=== PATIENT | male | born 1990 | race Caucasian/White ===

== ENCOUNTER → 2017-10-13 | Outpatient (CLI) | payer BC, OTHER ==
--- NOTE | 2017-10-13 12:48 | XR ---
EXAMINATION TYPE: XR chest 2V DATE OF EXAM: 10/13/2017 COMPARISON: NONE HISTORY: Asthma TECHNIQUE: Frontal and lateral views of the chest are obtained. FINDINGS: There is no focal air space opacity, pleural effusion, or pneumothorax seen. The cardiac silhouette size is within normal limits. The osseous structures are intact. IMPRESSION: No acute cardiopulmonary process.
== END | disposition home or self-care (01) ==
LOC: RADXRMAIN 12:05
PROVIDERS: ATTEND Family Medicine
DX: J45.909 Unspecified asthma, uncomplicated (principal)
CPT/HCPCS: 71046

== ENCOUNTER → 2017-10-21 | Outpatient (CLI) | payer BC ==
--- NOTE | 2017-10-22 11:15 | ECHOF ---
Referral Reason:CHEST PAIN R07.9 MEASUREMENTS -------- HEIGHT: 182.9 cm WEIGHT: 99.8 kg BP: 132/79 RVIDd: 3.3 cm (< 3.3) IVSd: 1.0 cm (0.6 - 1.1) LVIDd: 4.7 cm (3.9 - 5.3) LVPWd: 1.3 cm (0.6 - 1.1) IVSs: 1.4 cm LVIDs: 3.4 cm LVPWs: 1.7 cm LAESV Index (A-L): 12.22 ml/m Ao Diam: 3.0 cm (2.0 - 3.7) AV Cusp: 2.4 cm (1.5 - 2.6) LA Diam: 3.8 cm (2.7 - 3.8) MV EXCURSION: 19.848 mm (> 18.000) MV EF SLOPE: 124 mm/s (70 - 150) EPSS: 0.6 cm MV E Manjinder: 0.80 m/s MV DecT: 314 ms MV A Manjinder: 0.42 m/s MV E/A Ratio: 1.90 RAP: 5.00 mmHg RVSP: 22.74 mmHg FINDINGS -------- Sinus rhythm. This was a technically good study. The left ventricular size is normal. Left ventricular wall thickness is normal. Overall left vent ricular systolic function is normal with, an EF between 55 - 60 %. The right ventricle is mildly enlarged. Normal LA size by volume 22+/-6 ml/m2. RA appears enlarged. The aortic valve is trileaflet, and appears structurally normal. No aortic stenosis or regurgitation. The mitral valve is normal. There is trace mitral regurgitation. Mild tricuspid regurgitation present. Right ventricular systolic pressure is normal at < 35 mmHg. There is no evidence of pulmonary hypertension. Trace/mild (physiologic) pulmonic regurgitation. The aortic root size is normal. Normal inferior vena cava with normal inspiratory collapse consistent with estimated right atrial pre ssure of 5 mmHg. The pericardium is normal. There is no pericardial effusion. CONCLUSIONS -------- 1. Sinus rhythm. 2. This was a technically good study. 3. The left ventricular size is normal. 4. Left ventricular wall thickness is normal. 5. Overall left ventricular systolic function is normal with, an EF between 55 - 60 %. 6. The right ventricle is mildly enlarged. 7. Normal LA size by volume 22+/-6 ml/m2. 8. RA appears enlarged. 9. The aortic valve is trileaflet, and appears structurally normal. No aortic stenosis or regurgitati on. 10. There is trace mitral regurgitation. 11. Mild tricuspid regurgitation present. 12. Right ventricular systolic pressure is normal at < 35 mmHg. 13. There is no evidence of pulmonary hypertension. 14. Trace/mild (physiologic) pulmonic regurgitation. 15. The aortic root size is normal. 16. There is no pericardial effusion. MUSIC MANAGER: Aurelio Hernandez RDCS
== END | disposition home or self-care (01) ==
LOC: RADECHMAIN 15:52
PROVIDERS: ATTEND Family Medicine
DX: I08.1 Rheumatic disorders of both mitral and tricuspid valves (principal)
CPT/HCPCS: 93306

== ENCOUNTER 2019-11-18 14:30 | Emergency (ER) | payer BC, OTHER ==
[2019-11-18 14:35] VITALS: TEMP 97.8
[2019-11-18] MEDS ORDERED: SODIUM CHLORIDE 0.9% 1,000 ML IV STA (14:47)
--- NOTE | 2019-11-18 14:52 | ED ---
General Adult HPI - General Chief complaint: Weakness Stated complaint: weakness,dehydration Time Seen by Provider: 11/18/19 14:36 Source: patient Mode of arrival: ambulatory Limitations: no limitations - History of Present Illness Initial comments: Patient is a 29-year-old male presenting to emergency Department with complaints of lightheadedness and weakness that has been going on for 2 weeks now. Patient states this started after a night of drinking when he woke up and felt hung over. Patient states that feeling has continued for the past 2 weeks. Patient states he went to [facility] ER last week and had lab work and fluids and everything was normal. Patient states she did follow up with his PCP who thought that he was dehydrated. He has been increasing his water intake and is still having symptoms. Patient describes his lightheadedness that increases when he stands up. Patient states he was driving today and felt like he might pass out at the wheel. Patient denies the room spinning. He denies chest pain, shortness of breath, cough, fever, abdominal pain, nausea, vomiting. He has no urinary complaints. He denies pain anywhere. He denies being on medications. He denies any injuries or trauma. He has no other complaints at this time. Upon arrival to the ER his vital signs are stable. - Related Data Home Medications Medication Instructions Recorded Confirmed No Known Home Medications 06/13/15 06/13/15 Allergies Allergy/AdvReac Type Severity Reaction Status Date / Time No Known Allergies Allergy Verified 11/18/19 14:35 Review of Systems ROS Statement: Those systems with pertinent positive or pertinent negative responses have been documented in the HPI. ROS Other: All systems not noted in ROS Statement are negative. Past Medical History Past Medical History: No Reported History History of Any Multi-Drug Resistant Organisms: None Reported Past Surgical History: No Surgical Hx Reported Past Psychological History: ADD/ADHD Smoking Status: Former smoker Past Alcohol Use History: Rare Past Drug Use History: None Reported General Exam - General Exam Comments Initial Comments: GENERAL: Well-appearing, well-nourished and in no acute distress. HEAD: Atraumatic, normocephalic. EYES: Pupils equal round and reactive to light, extraocular movements intact, sclera anicteric, conjunctiva are normal. ENT: TMs normal, nares patent, oropharynx clear without exudates. Moist mucous membranes. NECK: Normal range of motion, supple without lymphadenopathy or JVD. LUNGS: Breath sounds clear to auscultation bilaterally and equal. No wheezes rales or rhonchi. HEART: Regular rate and rhythm without murmurs, rubs or gallops. ABDOMEN: Soft, nontender, normoactive bowel sounds. No guarding, no rebound. No masses appreciated. : Deferred EXTREMITIES: Normal range of motion, no pitting or edema. No clubbing or cyanosis. NEUROLOGICAL: Normal speech, normal gait. PSYCH: Normal mood, normal affect. SKIN: Warm, Dry, normal turgor, no rashes or lesions noted. Limitations: no limitations Course Vital Signs 11/18/19 14:31 Temperature 97.8 F Pulse Rate 69 Respiratory 16 Rate Blood Pressure 147/79 O2 Sat by Pulse 100 Oximetry EKG Findings - EKG Comments: EKG Findings:: Jugular rate 76, MS interval 162, QTC 393. Normal sinus rhythm. Normal ECG. No acute ST segment changes. Medical Decision Making - Medical Decision Making Patient is a 29-year-old male presenting with weakness and lightheadedness for 2 weeks. Vitals are stable. His exam is unremarkable. EKG shows no acute abnormalities. Lab work is unremarkable including negative troponin, urine, uri ne drug screen. Patient's vitals remained stable. I discussed these findings with the patient. He was mildly dehydrated, patient was given fluids. Patient records from [facility] were reviewed and showed no acute abnormalities. Patient will follow back up with his PCP. Recommended eating every 2-3 hours and keeping a log of his food intake. He is in agreement with this plan. Return parameters were discussed with the patient he verbalizes understanding. He is stable for discharge. Case discussed with Dr. Munson. - Lab Data Result diagrams: 11/18/19 14:50 11/18/19 14:50 Lab Results 11/18/19 11/18/19 11/18/19 Range/Units 14:50 14:50 14:50 WBC 6.7 (3.8-10.6) k/uL RBC 5.27 (4.30-5.90) m/uL Hgb 16.7 (13.0-17.5) gm/dL Hct 48.8 (39.0-53.0) % MCV 92.6 (80.0-100.0) fL MCH 31.7 (25.0-35.0) pg MCHC 34.3 (31.0-37.0) g/dL RDW 12.0 (11.5-15.5) % Plt Count 157 (150-450) k/uL Neutrophils % 64 % Lymphocytes % 27 % Monocytes % 5 % Eosinophils % 1 % Basophils % 0 % Neutrophils # 4.3 (1.3-7.7) k/uL Lymphocytes # 1.8 (1.0-4.8) k/uL Monocytes # 0.4 (0-1.0) k/uL Eosinophils # 0.1 (0-0.7) k/uL Basophils # 0.0 (0-0.2) k/uL Sodium 140 (137-145) mmol/L Potassium 4.7 (3.5-5.1) mmol/L Chloride 104 (98-107) mmol/L Carbon Dioxide 29 (22-30) mmol/L Anion Gap 7 mmol/L BUN 21 H (9-20) mg/dL Creatinine 0.95 (0.66-1.25) mg/dL Est GFR (CKD-EPI)AfAm >90 (>60 ml/min/1.73 sqM) Est GFR (CKD-EPI)NonAf >90 (>60 ml/min/1.73 sqM) Glucose 114 H (74-99) mg/dL Calcium 9.9 (8.4-10.2) mg/dL Total Bilirubin 1.0 (0.2-1.3) mg/dL AST 21 (17-59) U/L ALT 17 (4-49) U/L Alkaline Phosphatase 76 (38-126) U/L Troponin I (0.000-0.034) ng/mL Total Protein 7.6 (6.3-8.2) g/dL Albumin 4.9 (3.5-5.0) g/dL Urine Color Colorless Urine Appearance Clear (Clear) Urine pH 7.0 (5.0-8.0) Ur Specific [place] 1.005 (1.001-1.035) Urine Protein Negative (Negative) Urine Glucose (UA) Negative (Negative) Urine Ketones Negative (Negative) Urine Blood Negative (Negative) Urine Nitrite Negative (Negative) Urine Bilirubin Negative (Negative) Urine Urobilinogen <2.0 (<2.0) mg/dL Ur Leukocyte Esterase Negative (Negative) Urine Opiates Screen Not Detected (NotDetected) Ur Oxycodone Screen Not Detected (NotDetected) Urine Methadone Screen Not Detected (NotDetected) Ur Propoxyphene Screen Not Detected (NotDetected) Ur Barbiturates Screen Not Detected (NotDetected) U Tricyclic Antidepress Not Detected (NotDetected) Ur Phencyclidine Scrn Not Detected (NotDetected) Ur Amphetamines Screen Not Detected (NotDetected) U Methamphetamines Scrn Not Detected (NotDetected) U Benzodiazepines Scrn Not Detected (NotDetected) Urine Cocaine Screen Not Detected (NotDetected) U Marijuana (THC) Screen Not Detected (NotDetected) Serum Alcohol <10 mg/dL 11/18/19 Range/Units 14:50 WBC (3.8-10.6) k/uL RBC (4.30-5.90) m/uL Hgb (13.0-17.5) gm/dL Hct (39.0-53.0) % MCV (80.0-100.0) fL MCH (25.0-35.0) pg MCHC (31.0-37.0) g/dL RDW (11.5-15.5) % Plt Count (150-450) k/uL Neutrophils % % Lymphocytes % % Monocytes % % Eosinophils % % Basophils % % Neutrophils # (1.3-7.7) k/uL Lymphocytes # (1.0-4.8) k/uL Monocytes # (0-1.0) k/uL Eosinophils # (0-0.7) k/uL Basophils # (0-0.2) k/uL Sodium (137-145) mmol/L Potassium (3.5-5.1) mmol/L Chloride (98-107) mmol/L Carbon Dioxide (22-30) mmol/L Anion Gap mmol/L BUN (9-20) mg/dL Creatinine (0.66-1.25) mg/dL Est GFR (CKD-EPI)AfAm (>60 ml/min/1.73 sqM) Est GFR (CKD-EPI)NonAf (>60 ml/min/1.73 sqM) Glucose (74-99) mg/dL Calcium (8.4-10.2) mg/dL Total Bilirubin (0.2-1.3) mg/dL AST (17-59) U/L ALT (4-49) U/L Alkaline Phosphatase (38-126) U/L Troponin I <0.012 (0.000-0.034) ng/mL Total Protein (6.3-8.2) g/dL Albumin (3.5-5.0) g/dL Urine Color Urine Appearance (Clear) Urine pH (5.0-8.0) Ur Specific [place] (1.001-1.035) Urine Protein (Negative) Urine Glucose (UA) (Negative) Urine Ketones (Negative) Urine Blood (Negative) Urine Nitrite (Negative) Urine Bilirubin (Negative) Urine Urobilinogen (<2.0) mg/dL Ur Leukocyte Esterase (Negative) Urine Opiates Screen (NotDetected) Ur Oxycodone Screen (NotDetected) Urine Methadone Screen (NotDetected) Ur Propoxyphene Screen (NotDetected) Ur Barbiturates Screen (NotDetected) U Tricyclic Antidepress (NotDetected) Ur Phencyclidine Scrn (NotDetected) Ur Amphetamines Screen (NotDetected) U Methamphetamines Scrn (NotDetected) U Benzodiazepines Scrn (NotDetected) Urine Cocaine Screen (NotDetected) U Marijuana (THC) Screen (NotDetected) Serum Alcohol mg/dL Disposition Clinical Impression: Dehydration, Light headedness Disposition: HOME SELF-CARE Condition: Stable Instructions (If sedation given, give patient instructions): Dehydration (ED) Additional Instructions: Please return to the Emergency Department if symptoms worsen or any other conc erns. Follow-up with PCP. Is patient prescribed a controlled substance at d/c from ED?: No Referrals: Leonides Luis MD [Primary Care Provider] - 1-2 days
[2019-11-18 15:07] LABS: Appearance,Urine Clear (Clear); Bilirubin,Urine Negative (Negative); Blood,Urine Negative (Negative); Color,Urine Colorless; Glucose,Urine (UA) Negative (Negative); Ketones,Urine Negative (Negative); Leukocyte Esterase,Urine Negative (Negative); Nitrite,Urine Negative (Negative); Protein,Urine Negative (Negative); Specific Gravity,Urine 1.005 (1.001-1.035); Urobilinogen,Urine <2.0 mg/dL (<2.0)
[2019-11-18 15:12] LABS: Basophils % (A) 0 %; Eosinophils # (A) 0.1 k/uL (0-0.7); Eosinophils % (A) 1 %; HCT 48.8 % (39.0-53.0); HGB 16.7 gm/dL (13.0-17.5); Lymphocytes # (A) 1.8 k/uL (1.0-4.8); Lymphocytes % (A) 27 %; MCH 31.7 pg (25.0-35.0); MCHC 34.3 g/dL (31.0-37.0); MCV 92.6 fL (80.0-100.0); Mean Platelet Volume 8.3; Monocytes # (A) 0.4 k/uL (0-1.0); Monocytes % (A) 5 %; Neutrophils # (A) 4.3 k/uL (1.3-7.7); Neutrophils % (A) 64 %; Platelet Count 157 k/uL (150-450); RBC 5.27 m/uL (4.30-5.90); WBC 6.7 k/uL (3.8-10.6)
[2019-11-18 15:16] LABS: Phencyclidine Screen,Urine Not Detected (NotDetected); Urn Cannabinoid Scrn Not Detected (NotDetected)
[2019-11-18 15:17] LABS: ALT 17 U/L (4-49); AST 21 U/L (17-59); African American GFR (CKD) >90 (>60 ml/min/1.73 sqM); Albumin 4.9 g/dL (3.5-5.0); Alcohol <10 mg/dL; Alkaline Phosphatase 76 U/L (38-126); Amphetamine Screen,Urine Not Detected (NotDetected); Anion Gap 7 mmol/L; Barbiturate Screen,Urine Not Detected (NotDetected); Benzodiazepines Screen,Urine Not Detected (NotDetected); Blood Urea Nitrogen 21 mg/dL (9-20); Calcium 9.9 mg/dL (8.4-10.2); Carbon Dioxide 29 mmol/L (22-30); Chloride 104 mmol/L (98-107); Cocaine Screen,Urine Not Detected (NotDetected); Glucose 114 mg/dL (74-99); Methadone Screen, Urine Not Detected (NotDetected); Non-African American GFR(CKD) >90 (>60 ml/min/1.73 sqM); Opiate Screen,Urine Not Detected (NotDetected); Oxycodone Screen, Urine Not Detected (NotDetected); Potassium 4.7 mmol/L (3.5-5.1); Sodium 140 mmol/L (137-145); Total Protein 7.6 g/dL (6.3-8.2); Tricyclic Antidepressant,Urine Not Detected (NotDetected)
[2019-11-18 15:57] VITALS: BP 141/76; PULSE 88; RESP 18
== END 2019-11-18 15:53 | disposition home or self-care (01) ==
LOC: EC 14:30
DX: E86.0 Dehydration (principal); Z87.891 Personal history of nicotine dependence
CPT/HCPCS: 36415; 80053; 80306; 80320; 81003; 84484; 85025; 93005; 96360; 99285

== ENCOUNTER → 2019-11-23 | Outpatient (CLI) | payer BC ==
--- NOTE | 2019-11-23 14:45 | XR ---
EXAMINATION TYPE: XR chest 2V DATE OF EXAM: 11/23/2019 COMPARISON: 12/03/2017 TECHNIQUE: PA and lateral views submitted. HISTORY: Shortness of breath FINDINGS: The lungs are clear and there is no pneumothorax, pleural effusion, or focal pneumonia. No overt fa ilure. Biapical pleural thickening. No pleural effusion. IMPRESSION: 1. No acute process.
== END | disposition home or self-care (01) ==
LOC: RADXRMAIN 14:25
PROVIDERS: ATTEND Family Medicine
DX: R06.09 Other forms of dyspnea (principal)
CPT/HCPCS: 71046

== ENCOUNTER → 2019-11-25 | Outpatient (CLI) | payer BC ==
--- NOTE | 2019-11-25 17:23 | ECHOF ---
Referral Reason:I10 hypertension MEASUREMENTS -------- HEIGHT: 182.9 cm WEIGHT: 95.3 kg BP: 104/61 RVIDd: 3.5 cm (< 3.3) IVSd: 1.0 cm (0.6 - 1.1) LVIDd: 5.0 cm (3.9 - 5.3) LVPWd: 1.0 cm (0.6 - 1.1) IVSs: 1.5 cm LVIDs: 3.4 cm LVPWs: 1.6 cm LA Diam: 3.7 cm (2.7 - 3.8) LAESV Index (A-L): 21.76 ml/m Ao Diam: 3.2 cm (2.0 - 3.7) AV Cusp: 2.2 cm (1.5 - 2.6) MV EXCURSION: 18.829 mm (> 18.000) MV EF SLOPE: 123 mm/s (70 - 150) EPSS: 0.4 cm MV E Manjinder: 0.98 m/s MV DecT: 186 ms MV A Manjinder: 0.62 m/s MV E/A Ratio: 1.60 RAP: 5.00 mmHg RVSP: 24.40 mmHg TAPSE: 19.91 mm FINDINGS -------- Sinus rhythm. This was a technically good study. The left ventricular size is normal. Left ventricular wall thickness is normal. Overall left vent ricular systolic function is normal with, an EF between 60 - 65 %. The right ventricle is mildly enlarged. Normal LA size by volume 22+/-6 ml/m2. The right atrium is normal in size. Aneurysmal Interatrial septum. The aortic valve is trileaflet and appears structurally normal. The mitral valve is normal. Mild tricuspid regurgitation present. Right ventricular systolic pressure is normal at < 35 mmHg. Trace/mild (physiologic) pulmonic regurgitation. The aortic root size is normal. Normal inferior vena cava with normal inspiratory collapse consistent with estimated right atrial pre ssure of 5 mmHg. The inferior vena cava is mildly dilated. There is no pericardial effusion. CONCLUSIONS -------- 1. Sinus rhythm. 2. This was a technically good study. 3. The left ventricular size is normal. 4. Left ventricular wall thickness is normal. 5. Overall left ventricular systolic function is normal with, an EF between 60 - 65 %. 6. The right ventricle is mildly enlarged. 7. Normal LA size by volume 22+/-6 ml/m2. 8. The right atrium is normal in size. 9. Aneurysmal Interatrial septum. 10. The aortic valve is trileaflet and appears structurally normal. 11. The mitral valve is normal. 12. Mild tricuspid regurgitation present. 13. Right ventricular systolic pressure is normal at < 35 mmHg. 14. Trace/mild (physiologic) pulmonic regurgitation. 15. The aortic root size is normal. 16. Normal inferior vena cava with normal inspiratory collapse consistent with estimated right atrial pressure of 5 mmHg. 17. The inferior vena cava is mildly dilated. 18. There is no pericardial effusion. SAL[employer]ERSON [employer]: Rhianna Diehl RDCS
== END | disposition home or self-care (01) ==
LOC: RADECHMAIN 12:39
PROVIDERS: ATTEND Family Medicine
DX: I07.1 Rheumatic tricuspid insufficiency (principal); I37.1 Nonrheumatic pulmonary valve insufficiency
CPT/HCPCS: 93306

== ENCOUNTER 2019-12-08 20:36 | Emergency (ER) | payer BC ==
[2019-12-08 20:43] VITALS: RESP 18
[2019-12-08] MEDS ORDERED: SODIUM CHLORIDE 0.9% 1,000 ML IV STA (21:10)
--- NOTE | 2019-12-08 21:17 | ED ---
General Adult HPI - General Chief complaint: Dizziness Stated complaint: Lightheaded Time Seen by Provider: 12/08/19 20:53 Source: patient Mode of arrival: ambulatory Limitations: no limitations - History of Present Illness Initial comments: 29-year-old male patient presents to the emergency department today for evaluation after having a syncopal episode at home. Patient states over the last month he has had 3 syncopal events. States that he has been evaluated by cardiology. He underwent an echocardiogram and was diagnosed with an atrial septal aneurysm. He is currently wearing a Holter monitor, has not had any calls from the [employer]. Patient states prior to the syncopal event he'll become very tired and felt cold. Patient has fallen from standing but denies any injuries. Mother is present she did witness the event states he was unconscious for only a few seconds. She denies any full body shaking or tonic-clonic movements during these episodes. Denies loss of bowel or bladder control. States that the patient feels very fatigued afterwards. He does admit to having some shortness of breath with this. Denies chest pain, nausea, or vomiting. Patient was initially told he was dehydrated so has been increasing his fluid intake including water. Prior to one month ago patient denies any history of similar symptoms. States he does have a history of asthma and takes montelukast, multivitamin, and fish oil tablets no other medications. Patient denies any recent rash, fever, chills, cough, abdominal pain, nausea, vomiting, diarrhea, constipation, back pain, numbness, tingling, hematuria, dysuria, urinary urgency, urinary frequency, headache, visual changes, or any other complaints. - Related Data Home Medications Medication Instructions Recorded Confirmed No Known Home Medications 06/13/15 06/13/15 Allergies Allergy/AdvReac Type Severity Reaction Status Date / Time No Known Allergies Allergy Verified 11/18/19 14:35 Review of Systems ROS Statement: Those systems with pertinent positive or pertinent negative responses have been documented in the HPI. ROS Other: All systems not noted in ROS Statement are negative. Past Medical History Past Medical History: No Reported History History of Any Multi-Drug Resistant Organisms: None Reported Past Surgical History: No Surgical Hx Reported Past Psychological History: ADD/ADHD Smoking Status: Former smoker Past Alcohol Use History: Rare Past Drug Use History: None Reported General Exam Limitations: no limitations General appearance: alert, in no apparent distress, other (This is a well- developed, well-nourished adult male patient in no acute distress. Vital signs upon presentation are temperature 97.6F, pulse 86, respirations 18, blood pressure 129/84, pulse ox 100% on room air.) Eye exam: Present: normal appearance, PERRL, EOMI. Absent: scleral icterus, conjunctival injection, periorbital swelling ENT exam: Present: normal exam, normal oropharynx, mucous membranes moist Respiratory exam: Present: normal lung sounds bilaterally. Absent: respiratory distress, wheezes, rales, rhonchi, stridor Cardiovascular Exam: Present: regular rate, normal rhythm, normal heart sounds. Absent: systolic murmur, diastolic murmur, rubs, gallop, clicks GI/Abdominal exam: Present: soft, normal bowel sounds. Absent: distended, tenderness, guarding, rebound, rigid Neurological exam: Present: alert, oriented X3, CN II-XII intact Psychiatric exam: Present: normal affect, normal mood Skin exam: Present: warm, dry, intact, normal color. Absent: rash Course Vital Signs 12/08/19 12/08/19 20:37 22:48 Temperature 97.6 F 98.0 F Pulse Rate 86 67 Respiratory 18 18 Rate Blood Pressure 129/84 122/82 O2 Sat by Pulse 100 100 Oximetry EKG Findings - EKG Comments: EKG Findings:: EKG obtained at 2046 shows normal sinus rhythm with a ventricular rate of 78, WI interval 164, QRS duration 102, QT 368, QTC 419. No evidence of ST elevation or depression. Medical Decision Making - Medical Decision Making 29-year-old male patient presents to the emergency department today for evaluation of syncope and dizziness. Physical examination is unremarkable. He is neurologically intact with no focal deficits. Labs reviewed and are unremarkable. EKG was normal sinus rhythm. Patient is currently being tested after having 2 similar episodes over the past month. He is currently wearing a Holter monitor. Holter monitor company did send images of his readouts which did appear to be normal sinus with some evidence of artifact. No evidence for ectopy. He'll be discharged follow up with his tire rebuilder as soon as possible for further evaluation. Return parameters were discussed in detail. He verbalizes understanding and agrees with this plan. - Lab Data Result diagrams: 12/08/19 20:55 12/08/19 20:55 Lab Results 12/08/19 12/08/19 12/08/19 Range/Units 20:55 20:55 20:55 WBC 10.3 (3.8-10.6) k/uL RBC 5.30 (4.30-5.90) m/uL Hgb 16.6 (13.0-17.5) gm/dL Hct 48.4 (39.0-53.0) % MCV 91.4 (80.0-100.0) fL MCH 31.3 (25.0-35.0) pg MCHC 34.3 (31.0-37.0) g/dL RDW 11.7 (11.5-15.5) % Plt Count 140 L (150-450) k/uL Neutrophils % 56 % Lymphocytes % 36 % Monocytes % 5 % Eosinophils % 1 % Basophils % 0 % Neutrophils # 5.7 (1.3-7.7) k/uL Lymphocytes # 3.7 (1.0-4.8) k/uL Monocytes # 0.5 (0-1.0) k/uL Eosinophils # 0.1 (0-0.7) k/uL Basophils # 0.0 (0-0.2) k/uL PT 9.9 (9.0-12.0) sec INR 0.9 (<1.2) APTT 25.2 (22.0-30.0) sec Sodium (137-145) mmol/L Potassium (3.5-5.1) mmol/L Chloride (98-107) mmol/L Carbon Dioxide (22-30) mmol/L Anion Gap mmol/L BUN (9-20) mg/dL Creatinine (0.66-1.25) mg/dL Est GFR (CKD-EPI)AfAm (>60 ml/min/1.73 sqM) Est GFR (CKD-EPI)NonAf (>60 ml/min/1.73 sqM) Glucose (74-99) mg/dL Calcium (8.4-10.2) mg/dL Total Bilirubin (0.2-1.3) mg/dL AST (17-59) U/L ALT (4-49) U/L Alkaline Phosphatase (38-126) U/L Troponin I (0.000-0.034) ng/mL Total Protein (6.3-8.2) g/dL Albumin (3.5-5.0) g/dL Urine Color Light Yellow Urine Appearance Clear (Clear) Urine pH 6.0 (5.0-8.0) Ur Specific [place] 1.025 (1.001-1.035) Urine Protein Negative (Negative) Urine Glucose (UA) Negative (Negative) Urine Ketones Negative (Negative) Urine Blood Negative (Negative) Urine Nitrite Negative (Negative) Urine Bilirubin Negative (Negative) Urine Urobilinogen <2.0 (<2.0) mg/dL Ur Leukocyte Esterase Negative (Negative) 12/08/19 12/08/19 Range/Units 20:55 20:55 WBC (3.8-10.6) k/uL RBC (4.30-5.90) m/uL Hgb (13.0-17.5) gm/dL Hct (39.0-53.0) % MCV (80.0-100.0) fL MCH (25.0-35.0) pg MCHC (31.0-37.0) g/dL RDW (11.5-15.5) % Plt Count (150-450) k/uL Neutrophils % % Lymphocytes % % Monocytes % % Eosinophils % % Basophils % % Neutrophils # (1.3-7.7) k/uL Lymphocytes # (1.0-4.8) k/uL Monocytes # (0-1.0) k/uL Eosinophils # (0-0.7) k/uL Basophils # (0-0.2) k/uL PT (9.0-12.0) sec INR (<1.2) APTT (22.0-30.0) sec Sodium 137 (137-145) mmol/L Potassium 4.1 (3.5-5.1) mmol/L Chloride 103 (98-107) mmol/L Carbon Dioxide 22 (22-30) mmol/L Anion Gap 12 mmol/L BUN 30 H (9-20) mg/dL Creatinine 1.02 (0.66-1.25) mg/dL Est GFR (CKD-EPI)AfAm >90 (>60 ml/min/1.73 sqM) Est GFR (CKD-EPI)NonAf >90 (>60 ml/min/1.73 sqM) Glucose 96 (74-99) mg/dL Calcium 9.6 (8.4-10.2) mg/dL Total Bilirubin 1.0 (0.2-1.3) mg/dL AST 22 (17-59) U/L ALT 19 (4-49) U/L Alkaline Phosphatase 85 (38-126) U/L Troponin I <0.012 (0.000-0.034) ng/mL Total Protein 7.8 (6.3-8.2) g/dL Albumin 5.0 (3.5-5.0) g/dL Urine Color Urine Appearance (Clear) Urine pH (5.0-8.0) Ur Specific [place] (1.001-1.035) Urine Protein (Negative) Urine Glucose (UA) (Negative) Urine Ketones (Negative) Urine Blood (Negative) Urine Nitrite (Negative) Urine Bilirubin (Negative) Urine Urobilinogen (<2.0) mg/dL Ur Leukocyte Esterase (Negative) - Radiology Data Radiology results: report reviewed, image reviewed 2 views of the chest are obtained. Report was reviewed in its entirety. Impression by Dr. Lowry shows normal chest. Normal heart. No change. Disposition Clinical Impression: Syncope Disposition: HOME SELF-CARE Condition: Good Instructions (If sedation given, give patient instructions): Syncope (ED) Additional Instructions: Increase fluids. Rest. Follow-up with your primary care physician for recheck in 1-2 days. Follow-up with her tire rebuilder as soon as possible. Return to the emergency department immediately for any new, worsening, or concerning symptoms. Is patient prescribed a controlled substance at d/c from ED?: No Referrals: Leonides Luis MD [Primary Care Provider] - 1-2 days Time of Disposition: 22:50
[2019-12-08 21:19] LABS: Basophils % (A) 0 %; Eosinophils # (A) 0.1 k/uL (0-0.7); Eosinophils % (A) 1 %; HCT 48.4 % (39.0-53.0); HGB 16.6 gm/dL (13.0-17.5); Lymphocytes # (A) 3.7 k/uL (1.0-4.8); Lymphocytes % (A) 36 %; MCH 31.3 pg (25.0-35.0); MCHC 34.3 g/dL (31.0-37.0); MCV 91.4 fL (80.0-100.0); Mean Platelet Volume 8.4; Monocytes # (A) 0.5 k/uL (0-1.0); Monocytes % (A) 5 %; Neutrophils # (A) 5.7 k/uL (1.3-7.7); Neutrophils % (A) 56 %; Platelet Count 140 k/uL (150-450); RDW 11.7 % (11.5-15.5); WBC 10.3 k/uL (3.8-10.6)
[2019-12-08 21:20] LABS: Appearance,Urine Clear (Clear); Bilirubin,Urine Negative (Negative); Blood,Urine Negative (Negative); Color,Urine Light Yellow; Glucose,Urine (UA) Negative (Negative); Ketones,Urine Negative (Negative); Leukocyte Esterase,Urine Negative (Negative); Nitrite,Urine Negative (Negative); Protein,Urine Negative (Negative); Specific Gravity,Urine 1.025 (1.001-1.035); Urobilinogen,Urine <2.0 mg/dL (<2.0)
--- NOTE | 2019-12-08 21:25 | XR ---
EXAMINATION TYPE: XR chest 2V DATE OF EXAM: 12/08/2019 History: Short of breath Technique: 2 views Comparison 11/23/2019 TECHNIQUE: FINDINGS: Heart and mediastinum are normal. Lungs are clear. Diaphragm is normal. Bony thorax appears normal. IMPRESSION: Normal chest. Normal heart. No change.
[2019-12-08 21:29] LABS: ALT 19 U/L (4-49); AST 22 U/L (17-59); African American GFR (CKD) >90 (>60 ml/min/1.73 sqM); Alkaline Phosphatase 85 U/L (38-126); Anion Gap 12 mmol/L; Blood Urea Nitrogen 30 mg/dL (9-20); Calcium 9.6 mg/dL (8.4-10.2); Carbon Dioxide 22 mmol/L (22-30); Chloride 103 mmol/L (98-107); Glucose 96 mg/dL (74-99); Non-African American GFR(CKD) >90 (>60 ml/min/1.73 sqM); Potassium 4.1 mmol/L (3.5-5.1); Sodium 137 mmol/L (137-145); Total Protein 7.8 g/dL (6.3-8.2)
[2019-12-08 21:32] LABS: INR 0.9 (<1.2); Partial Thromboplastin Time 25.2 sec (22.0-30.0); Prothrombin Time 9.9 sec (9.0-12.0)
[2019-12-08 22:49] VITALS: BP 122/82; PULSE 67; TEMP 98
== END 2019-12-08 22:55 | disposition home or self-care (01) ==
LOC: EC 20:36
DX: R55 Syncope and collapse (principal); R42 Dizziness and giddiness; R06.02 Shortness of breath; Z87.891 Personal history of nicotine dependence
CPT/HCPCS: 36415; 71046; 80053; 81003; 84484; 85025; 85610; 85730; 93005; 96360; 99284

== ENCOUNTER 2019-12-12 15:10 | Emergency (ER) | payer BC ==
[2019-12-12 15:15] LABS: Glucose,Whole Blood 102 mg/dL (75-99)
[2019-12-12 15:17] VITALS: TEMP 98.7
[2019-12-12] MEDS ORDERED: SODIUM CHLORIDE 0.9% 1,000 ML IV STA ×2 (15:31)
[2019-12-12 15:48] LABS: Basophils % (A) 1 %; Eosinophils # (A) 0.1 k/uL (0-0.7); Eosinophils % (A) 2 %; HCT 48.7 % (39.0-53.0); HGB 16.1 gm/dL (13.0-17.5); Lymphocytes # (A) 2.4 k/uL (1.0-4.8); Lymphocytes % (A) 36 %; MCH 30.8 pg (25.0-35.0); MCHC 33.1 g/dL (31.0-37.0); MCV 92.9 fL (80.0-100.0); Mean Platelet Volume 8.4; Monocytes # (A) 0.4 k/uL (0-1.0); Monocytes % (A) 6 %; Neutrophils # (A) 3.5 k/uL (1.3-7.7); Neutrophils % (A) 53 %; Platelet Count 125 k/uL (150-450); RBC 5.25 m/uL (4.30-5.90); RDW 11.6 % (11.5-15.5); WBC 6.6 k/uL (3.8-10.6)
--- NOTE | 2019-12-12 15:48 | ED ---
General Adult HPI - General Chief complaint: Dizziness Stated complaint: confusion/dizziness Time Seen by Provider: 12/12/19 15:18 Source: patient, RN notes reviewed, old records reviewed Mode of arrival: ambulatory Limitations: no limitations - History of Present Illness Initial comments: Patient is a 29-year-old male who presents emergency room today with complaints of shortness of breath, he can't take a full deep breath and shakiness as well and lightheadedness. He reports his been to the emergency department multiple times and was diagnosed dehydration. Patient states that he's been drinking plenty of water. He denies any drug or alcohol use. Patient reports she's had full evaluation including an echocardiogram and follow-up with his primary care doctor. He states that he's been feeling this way for the past month. He denies any anxiety. He denies any pain at this time. - Related Data Home Medications Medication Instructions Recorded Confirmed No Known Home Medications 06/13/15 06/13/15 Allergies Allergy/AdvReac Type Severity Reaction Status Date / Time No Known Allergies Allergy Verified 12/12/19 15:17 Review of Systems ROS Statement: Those systems with pertinent positive or pertinent negative responses have been documented in the HPI. ROS Other: All systems not noted in ROS Statement are negative. Past Medical History Past Medical History: No Reported History History of Any Multi-Drug Resistant Organisms: None Reported Past Surgical History: No Surgical Hx Reported Past Psychological History: ADD/ADHD Smoking Status: Former smoker Past Alcohol Use History: Rare Past Drug Use History: None Reported General Exam - General Exam Comments Initial Comments: 29-year-old male. Alert and oriented 3. No distress. Patient appears somewhat shaky. Limitations: no limitations General appearance: alert, in no apparent distress Head exam: Present: atraumatic, normocephalic, normal inspection Eye exam: Present: normal appearance, PERRL, EOMI. Absent: scleral icterus, conjunctival injection, periorbital swelling ENT exam: Present: normal exam, mucous membranes moist Neck exam: Present: normal inspection. Absent: tenderness, meningismus, lymphadenopathy Respiratory exam: Present: normal lung sounds bilaterally. Absent: respiratory distress, wheezes, rales, rhonchi, stridor Cardiovascular Exam: Present: regular rate, normal rhythm, normal heart sounds, other (Patient has Holter monitor.). Absent: systolic murmur, diastolic murmur, rubs, gallop, clicks GI/Abdominal exam: Present: soft, normal bowel sounds. Absent: distended, tenderness, guarding, rebound, rigid Extremities exam: Present: normal inspection, full ROM, normal capillary refill. Absent: tenderness, pedal edema, joint swelling, calf tenderness Back exam: Present: normal inspection Neurological exam: Present: alert, oriented X3, CN II-XII intact Psychiatric exam: Present: normal affect, normal mood Skin exam: Present: warm, dry, intact, normal color Course Vital Signs 12/12/19 15:12 Temperature 98.7 F Pulse Rate 77 Respiratory 18 Rate Blood Pressure 128/79 O2 Sat by Pulse 98 Oximetry - Reevaluation(s) Reevaluation #1: 12/12/19 16:48 Patient is reevaluated resting comfortably in bed. He states he is feeling much better at this time. Discussed lab results Patient feels well and will be discharged home. EKG Findings - EKG Comments: EKG Findings:: EKG performed at 1553 shows sinus rhythm with marked sinus ar rhythmia otherwise normal EKG. Ventricular rate 74 bpm period. Intervals 156 ms. QRS duration is 96 ms. QT QTc is 356/395 ms. Medical Decision Making - Medical Decision Making Patient is a 79-year-old male presents raise from today was shakiness, feeling lightheaded. On initial presentation appeared somewhat anxious. He denied any acute anxiety history. Patient was given full evaluation. Labs and EKG is obtained. EKG shows Sinus rhythm, no acute changes. Patient also has a Holter monitor on. The company has not called him with any abnormalities. On his last evaluation 4 days ago records were completed from the heart monitor [employer] and showed no changes. Troponin and rest his blood work was reviewed and negative. After reevaluating the Patient receiving 1 L fluids is stating he is feeling much better and continues to symptoms of feeling like he is dehydrated. Discusses no vomiting and diarrhea does not appear to be clinical case of dehydration based off the lab, however if he is feeling improved he is Stable to be discharged home. I clinically feel that this is more of anxiety induced symptoms. I discussed following up with his primary care doctor. - Lab Data Result diagrams: 12/12/19 15:36 12/12/19 15:36 Lab Results 03/22/20 03/22/20 03/22/20 Range/Units 15:14 15:36 15:36 WBC 6.6 (3.8-10.6) k/uL RBC 5.25 (4.30-5.90) m/uL Hgb 16.1 (13.0-17.5) gm/dL Hct 48.7 (39.0-53.0) % MCV 92.9 (80.0-100.0) fL MCH 30.8 (25.0-35.0) pg MCHC 33.1 (31.0-37.0) g/dL RDW 11.6 (11.5-15.5) % Plt Count 125 L (150-450) k/uL Neutrophils % 53 % Lymphocytes % 36 % Monocytes % 6 % Eosinophils % 2 % Basophils % 1 % Neutrophils # 3.5 (1.3-7.7) k/uL Lymphocytes # 2.4 (1.0-4.8) k/uL Monocytes # 0.4 (0-1.0) k/uL Eosinophils # 0.1 (0-0.7) k/uL Basophils # 0.0 (0-0.2) k/uL PT 10.3 (9.0-12.0) sec INR 1.0 (<1.2) Sodium (137-145) mmol/L Potassium (3.5-5.1) mmol/L Chloride (98-107) mmol/L Carbon Dioxide (22-30) mmol/L Anion Gap mmol/L BUN (9-20) mg/dL Creatinine (0.66-1.25) mg/dL Est GFR (CKD-EPI)AfAm (>60 ml/min/1.73 sqM) Est GFR (CKD-EPI)NonAf (>60 ml/min/1.73 sqM) Glucose (74-99) mg/dL POC Glucose (mg/dL) 102 H (75-99) mg/dL POC Glu Script Coordinator ID Sandhya Whitman Plasma Lactic Acid Les (0.7-2.0) mmol/L Calcium (8.4-10.2) mg/dL Magnesium (1.6-2.3) mg/dL Total Bilirubin (0.2-1.3) mg/dL AST (17-59) U/L ALT (4-49) U/L Alkaline Phosphatase (38-126) U/L Troponin I (0.000-0.034) ng/mL Total Protein (6.3-8.2) g/dL Albumin (3.5-5.0) g/dL TSH (0.465-4.680) mIU/L Urine Color Urine Appearance (Clear) Urine pH (5.0-8.0) Ur Specific [place] (1.001-1.035) Urine Protein (Negative) Urine Glucose (UA) (Negative) Urine Ketones (Negative) Urine Blood (Negative) Urine Nitrite (Negative) Urine Bilirubin (Negative) Urine Urobilinogen (<2.0) mg/dL Ur Leukocyte Esterase (Negative) Urine Opiates Screen (NotDetected) Ur Oxycodone Screen (NotDetected) Urine Methadone Screen (NotDetected) Ur Propoxyphene Screen (NotDetected) Ur Barbiturates Screen (NotDetected) U Tricyclic Antidepress (NotDetected) Ur Phencyclidine Scrn (NotDetected) Ur Amphetamines Screen (NotDetected) U Methamphetamines Scrn (NotDetected) U Benzodiazepines Scrn (NotDetected) Urine Cocaine Screen (NotDetected) U Marijuana (THC) Screen (NotDetected) Serum Alcohol mg/dL 12/12/19 12/12/19 12/12/19 Range/Units 15:36 15:36 15:47 WBC (3.8-10.6) k/uL RBC (4.30-5.90) m/uL Hgb (13.0-17.5) gm/dL Hct (39.0-53.0) % MCV (80.0-100.0) fL MCH (25.0-35.0) pg MCHC (31.0-37.0) g/dL RDW (11.5-15.5) % Plt Count (150-450) k/uL Neutrophils % % Lymphocytes % % Monocytes % % Eosinophils % % Basophils % % Neutrophils # (1.3-7.7) k/uL Lymphocytes # (1.0-4.8) k/uL Monocytes # (0-1.0) k/uL Eosinophils # (0-0.7) k/uL Basophils # (0-0.2) k/uL PT (9.0-12.0) sec INR (<1.2) Sodium 141 (137-145) mmol/L Potassium 4.3 (3.5-5.1) mmol/L Chloride 105 (98-107) mmol/L Carbon Dioxide 29 (22-30) mmol/L Anion Gap 7 mmol/L BUN 24 H (9-20) mg/dL Creatinine 1.05 (0.66-1.25) mg/dL Est GFR (CKD-EPI)AfAm >90 (>60 ml/min/1.73 sqM) Est GFR (CKD-EPI)NonAf >90 (>60 ml/min/1.73 sqM) Glucose 94 (74-99) mg/dL POC Glucose (mg/dL) (75-99) mg/dL POC Glu Script Coordinator ID Plasma Lactic Acid Les 1.6 (0.7-2.0) mmol/L Calcium 9.9 (8.4-10.2) mg/dL Magnesium 2.2 (1.6-2.3) mg/dL Total Bilirubin 1.7 H (0.2-1.3) mg/dL AST 20 (17-59) U/L ALT 19 (4-49) U/L Alkaline Phosphatase 68 (38-126) U/L Troponin I <0.012 (0.000-0.034) ng/mL Total Protein 7.4 (6.3-8.2) g/dL Albumin 4.7 (3.5-5.0) g/dL TSH 1.920 (0.465-4.680) mIU/L Urine Color Urine Appearance (Clear) Urine pH (5.0-8.0) Ur Specific [place] (1.001-1.035) Urine Protein (Negative) Urine Glucose (UA) (Negative) Urine Ketones (Negative) Urine Blood (Negative) Urine Nitrite (Negative) Urine Bilirubin (Negative) Urine Urobilinogen (<2.0) mg/dL Ur Leukocyte Esterase (Negative) Urine Opiates Screen (NotDetected) Ur Oxycodone Screen (NotDetected) Urine Methadone Screen (NotDetected) Ur Propoxyphene Screen (NotDetected) Ur Barbiturates Screen (NotDetected) U Tricyclic Antidepress (NotDetected) Ur Phencyclidine Scrn (NotDetected) Ur Amphetamines Screen (NotDetected) U Methamphetamines Scrn (NotDetected) U Benzodiazepines Scrn (NotDetected) Urine Cocaine Screen (NotDetected) U Marijuana (THC) Screen (NotDetected) Serum Alcohol mg/dL 12/12/19 12/12/19 Range/Units 15:47 15:55 WBC (3.8-10.6) k/uL RBC (4.30-5.90) m/uL Hgb (13.0-17.5) gm/dL Hct (39.0-53.0) % MCV (80.0-100.0) fL MCH (25.0-35.0) pg MCHC (31.0-37.0) g/dL RDW (11.5-15.5) % Plt Count (150-450) k/uL Neutrophils % % Lymphocytes % % Monocytes % % Eosinophils % % Basophils % % Neutrophils # (1.3-7.7) k/uL Lymphocytes # (1.0-4.8) k/uL Monocytes # (0-1.0) k/uL Eosinophils # (0-0.7) k/uL Basophils # (0-0.2) k/uL PT (9.0-12.0) sec INR (<1.2) Sodium (137-145) mmol/L Potassium (3.5-5.1) mmol/L Chloride (98-107) mmol/L Carbon Dioxide (22-30) mmol/L Anion Gap mmol/L BUN (9-20) mg/dL Creatinine (0.66-1.25) mg/dL Est GFR (CKD-EPI)AfAm (>60 ml/min/1.73 sqM) Est GFR (CKD-EPI)NonAf (>60 ml/min/1.73 sqM) Glucose (74-99) mg/dL POC Glucose (mg/dL) (75-99) mg/dL POC Glu Script Coordinator ID Plasma Lactic Acid Les (0.7-2.0) mmol/L Calcium (8.4-10.2) mg/dL Magnesium (1.6-2.3) mg/dL Total Bilirubin (0.2-1.3) mg/dL AST (17-59) U/L ALT (4-49) U/L Alkaline Phosphatase (38-126) U/L Troponin I (0.000-0.034) ng/mL Total Protein (6.3-8.2) g/dL Albumin (3.5-5.0) g/dL TSH (0.465-4.680) mIU/L Urine Color Colorless Urine Appearance Clear (Clear) Urine pH 7.0 (5.0-8.0) Ur Specific [place] 1.005 (1.001-1.035) Urine Protein Negative (Negative) Urine Glucose (UA) Negative (Negative) Urine Ketones Negative (Negative) Urine Blood Negative (Negative) Urine Nitrite Negative (Negative) Urine Bilirubin Negative (Negative) Urine Urobilinogen <2.0 (<2.0) mg/dL Ur Leukocyte Esterase Negative (Negative) Urine Opiates Screen Not Detected (NotDetected) Ur Oxycodone Screen Not Detected (NotDetected) Urine Methadone Screen Not Detected (NotDetected) Ur Propoxyphene Screen Not Detected (NotDetected) Ur Barbiturates Screen Not Detected (NotDetected) U Tricyclic Antidepress Not Detected (NotDetected) Ur Phencyclidine Scrn Not Detected (NotDetected) Ur Amphetamines Screen Not Detected (NotDetected) U Methamphetamines Scrn Not Detected (NotDetected) U Benzodiazepines Scrn Not Detected (NotDetected) Urine Cocaine Screen Not Detected (NotDetected) U Marijuana (THC) Screen Not Detected (NotDetected) Serum Alcohol <10 mg/dL 12/12/19 16:22 Chest x-ray is negative for any acute process. - Radiology Data Radiology results: report reviewed Chest x-ray is negative for any acute process. Disposition Clinical Impression: Lightheadedness Disposition: HOME SELF-CARE Condition: Good Instructions (If sedation given, give patient instructions): Dizziness (ED) Is patient prescribed a controlled substance at d/c from ED?: No Referrals: Leonides Luis MD [Primary Care Provider] - 1-2 days Time of Disposition: 16:50
[2019-12-12 16:03] LABS: ALT 19 U/L (4-49); AST 20 U/L (17-59); African American GFR (CKD) >90 (>60 ml/min/1.73 sqM); Albumin 4.7 g/dL (3.5-5.0); Alkaline Phosphatase 68 U/L (38-126); Anion Gap 7 mmol/L; Blood Urea Nitrogen 24 mg/dL (9-20); Calcium 9.9 mg/dL (8.4-10.2); Carbon Dioxide 29 mmol/L (22-30); Chloride 105 mmol/L (98-107); Glucose 94 mg/dL (74-99); Magnesium 2.2 mg/dL (1.6-2.3); Non-African American GFR(CKD) >90 (>60 ml/min/1.73 sqM); Potassium 4.3 mmol/L (3.5-5.1); Sodium 141 mmol/L (137-145); Total Bilirubin 1.7 mg/dL (0.2-1.3); Total Protein 7.4 g/dL (6.3-8.2)
[2019-12-12 16:05] LABS: Prothrombin Time 10.3 sec (9.0-12.0)
[2019-12-12 16:11] LABS: Appearance,Urine Clear (Clear); Bilirubin,Urine Negative (Negative); Blood,Urine Negative (Negative); Color,Urine Colorless; Glucose,Urine (UA) Negative (Negative); Ketones,Urine Negative (Negative); Leukocyte Esterase,Urine Negative (Negative); Nitrite,Urine Negative (Negative); Protein,Urine Negative (Negative); Specific Gravity,Urine 1.005 (1.001-1.035); Urobilinogen,Urine <2.0 mg/dL (<2.0)
--- NOTE | 2019-12-12 16:15 | XR ---
EXAMINATION TYPE: XR chest 2V DATE OF EXAM: 12/12/2019 COMPARISON: 12/08/2019 HISTORY: Syncope TECHNIQUE: 2 views FINDINGS: Heart and mediastinum are normal. Lungs are clear. Diaphragm is normal. Bony thorax appears normal. IMPRESSION: Normal chest. No change.
[2019-12-12 16:26] LABS: Amphetamine Screen,Urine Not Detected (NotDetected); Barbiturate Screen,Urine Not Detected (NotDetected); Benzodiazepines Screen,Urine Not Detected (NotDetected); Cocaine Screen,Urine Not Detected (NotDetected); Methadone Screen, Urine Not Detected (NotDetected); Opiate Screen,Urine Not Detected (NotDetected); Oxycodone Screen, Urine Not Detected (NotDetected); Phencyclidine Screen,Urine Not Detected (NotDetected); Tricyclic Antidepressant,Urine Not Detected (NotDetected); Urn Cannabinoid Scrn Not Detected (NotDetected)
[2019-12-12 17:06] VITALS: BP 126/75; PULSE 86; RESP 16
== END 2019-12-12 17:17 | disposition home or self-care (01) ==
LOC: EC 15:10
DX: R42 Dizziness and giddiness (principal); F41.9 Anxiety disorder, unspecified; Z87.891 Personal history of nicotine dependence
CPT/HCPCS: 36415; 71046; 80053; 80306; 80320; 81003; 83605; 83735; 84443; 84484; 85025; 85610; 93005; 96360; 99284

== ENCOUNTER 2019-12-14 16:19 | Emergency (ER) | payer BC ==
[2019-12-14] MEDS ORDERED: SODIUM CHLORIDE 0.9% 1,000 ML IV STA ×2 (16:47)
[2019-12-14 16:56] LABS: Basophils % (A) 0 %; Eosinophils # (A) 0.1 k/uL (0-0.7); Eosinophils % (A) 1 %; HCT 49.1 % (39.0-53.0); Lymphocytes # (A) 1.4 k/uL (1.0-4.8); Lymphocytes % (A) 23 %; MCH 31.8 pg (25.0-35.0); MCHC 34.7 g/dL (31.0-37.0); MCV 91.6 fL (80.0-100.0); Monocytes # (A) 0.4 k/uL (0-1.0); Monocytes % (A) 6 %; Neutrophils # (A) 4.1 k/uL (1.3-7.7); Neutrophils % (A) 69 %; Platelet Count 127 k/uL (150-450); RBC 5.36 m/uL (4.30-5.90); RDW 11.7 % (11.5-15.5)
[2019-12-14 17:06] LABS: ALT 21 U/L (4-49); AST 21 U/L (17-59); Acetaminophen <10.0 ug/mL; African American GFR (CKD) >90 (>60 ml/min/1.73 sqM); Albumin 5.1 g/dL (3.5-5.0); Alcohol <10 mg/dL; Alkaline Phosphatase 70 U/L (38-126); Anion Gap 7 mmol/L; Blood Urea Nitrogen 18 mg/dL (9-20); Calcium 9.7 mg/dL (8.4-10.2); Carbon Dioxide 28 mmol/L (22-30); Chloride 104 mmol/L (98-107); Creatine Kinase 41 U/L (55-170); Glucose 100 mg/dL (74-99); Magnesium 2.2 mg/dL (1.6-2.3); Non-African American GFR(CKD) >90 (>60 ml/min/1.73 sqM); Phosphorus 3.5 mg/dL (2.5-4.5); Salicylate <1.0 mg/dL; Sodium 139 mmol/L (137-145); Total Bilirubin 2.1 mg/dL (0.2-1.3); Total Protein 7.8 g/dL (6.3-8.2)
[2019-12-14 17:08] LABS: Partial Thromboplastin Time 25.1 sec (22.0-30.0); Prothrombin Time 10.5 sec (9.0-12.0)
[2019-12-14 17:10] LABS: Appearance,Urine Clear (Clear); Bilirubin,Urine Negative (Negative); Blood,Urine Negative (Negative); Color,Urine Light Yellow; Glucose,Urine (UA) Negative (Negative); Ketones,Urine Negative (Negative); Leukocyte Esterase,Urine Negative (Negative); Nitrite,Urine Negative (Negative); PH, Urine 7.5 (5.0-8.0); Protein,Urine Negative (Negative); Specific Gravity,Urine 1.007 (1.001-1.035); Urobilinogen,Urine <2.0 mg/dL (<2.0)
--- NOTE | 2019-12-14 17:17 | ED ---
Dizziness HPI - General Chief Complaint: Syncope Stated Complaint: nauseous,light headed Time Seen by Provider: 12/14/19 16:31 Source: patient, RN notes reviewed, old records reviewed Mode of arrival: wheelchair Limitations: no limitations - History of Present Illness Initial Comments: This is a 29-year-old male DF for evaluation patient has a for further evaluation regarding weakness not feeling well sleeping a lot symptoms for a month. Patient is multiple ER visits for same this hospital and another hospital. Patient denying any fevers no complaints of pain no headache shortness of breath chest pain now. No nausea vomiting or diarrhea 7) bedside states patient has been doing a lot of sleeping especially for the last month MD Complaint: dizziness, other (Weakness) -: month(s) Timing: gradual onset, intermittent Description: sense of movement History of Same: Yes History of Trauma: No Severity: mild Worsens With: nothing Associated Symptoms: weakness - Related Data Home Medications Medication Instructions Recorded Confirmed Advair Unknown Dose 1 puff PO RT-BID 12/12/19 12/12/19 Albuterol Sulfate [Proair Hfa] 2 puff INHALATION RT-Q6H PRN 12/12/19 12/12/19 Montelukast [Singulair] 10 mg PO DAILY 12/12/19 12/12/19 Multivitamins, Thera [Multivitamin 1 tab PO DAILY 12/12/19 12/12/19 (formulary)] Allergies Allergy/AdvReac Type Severity Reaction Status Date / Time No Known Allergies Allergy Verified 12/14/19 16:27 Review of Systems ROS Statement: Those systems with pertinent positive or pertinent negative responses have been documented in the HPI. ROS Other: All systems not noted in ROS Statement are negative. Past Medical History Past Medical History: Asthma History of Any Multi-Drug Resistant Organisms: None Reported Past Surgical History: No Surgical Hx Reported Past Psychological History: ADD/ADHD Smoking Status: Former smoker Past Alcohol Use History: Rare Past Drug Use History: Marijuana General Exam Limitations: no limitations General appearance: alert, in no apparent distress Head exam: Present: atraumatic, normocephalic, normal inspection Eye exam: Present: normal appearance, PERRL, EOMI. Absent: scleral icterus, conjunctival injection, periorbital swelling ENT exam: Present: normal exam, mucous membranes moist Neck exam: Present: normal inspection. Absent: tenderness, meningismus, lymphadenopathy Respiratory exam: Present: normal lung sounds bilaterally. Absent: respiratory distress, wheezes, rales, rhonchi, stridor Cardiovascular Exam: Present: regular rate, normal rhythm, normal heart sounds. Absent: systolic murmur, diastolic murmur, rubs, gallop, clicks GI/Abdominal exam: Present: soft, normal bowel sounds. Absent: distended, tenderness, guarding, rebound, rigid Extremities exam: Present: normal inspection, full ROM, normal capillary refill. Absent: tenderness, pedal edema, joint swelling, calf tenderness Back exam: Present: normal inspection Neurological exam: Present: alert, oriented X3, CN II-XII intact Psychiatric exam: Present: normal affect, normal mood Skin exam: Present: warm, dry, intact, normal color. Absent: rash Course Vital Signs 12/14/19 16:23 Temperature 98.5 F Pulse Rate 81 Respiratory 20 Rate Blood Pressure 125/81 O2 Sat by Pulse 100 Oximetry - Reevaluation(s) Reevaluation #1: 12/14/19 17:37 Medical records reviewed Reevaluation #2: 12/14/19 17:38 Prior ER visits are reviewed 12/14/19 19:00 Patient informed of lab testing here questions are answered Reevaluation #3: 12/14/19 17:38 Patient feeling better 12/14/19 19:00 Patient denies chest pain shortness of breath abdominal pain or headache Reevaluation #4: 12/14/19 19:00 Patient states he does remain to continue to feel better here in the ER 12/14/19 19:01 Patient will continue monitoring with Holter monitor follow-up with cardiology EKG Findings - EKG Comments: EKG Findings:: EKG shows NSR 79 WV 156 QRS 94 QTc 403 Medical Decision Making - Medical Decision Making 29 male patient has weakness not feeling well. Patient has no abnormal lab values patient can be discharged home - Lab Data Result diagrams: 12/14/19 16:45 12/14/19 16:45 Lab Results 12/14/19 12/14/19 12/14/19 Range/Units 16:45 16:45 16:45 WBC (3.8-10.6) k/uL RBC (4.30-5.90) m/uL Hgb (13.0-17.5) gm/dL Hct (39.0-53.0) % MCV (80.0-100.0) fL MCH (25.0-35.0) pg MCHC (31.0-37.0) g/dL RDW (11.5-15.5) % Plt Count (150-450) k/uL Neutrophils % % Lymphocytes % % Monocytes % % Eosinophils % % Basophils % % Neutrophils # (1.3-7.7) k/uL Lymphocytes # (1.0-4.8) k/uL Monocytes # (0-1.0) k/uL Eosinophils # (0-0.7) k/uL Basophils # (0-0.2) k/uL PT 10.5 (9.0-12.0) sec INR 1.0 (<1.2) APTT 25.1 (22.0-30.0) sec Sodium 139 (137-145) mmol/L Potassium 4.0 (3.5-5.1) mmol/L Chloride 104 (98-107) mmol/L Carbon Dioxide 28 (22-30) mmol/L Anion Gap 7 mmol/L BUN 18 (9-20) mg/dL Creatinine 1.11 (0.66-1.25) mg/dL Est GFR (CKD-EPI)AfAm >90 (>60 ml/min/1.73 sqM) Est GFR (CKD-EPI)NonAf >90 (>60 ml/min/1.73 sqM) Glucose 100 H (74-99) mg/dL Calcium 9.7 (8.4-10.2) mg/dL Phosphorus 3.5 (2.5-4.5) mg/dL Magnesium 2.2 (1.6-2.3) mg/dL Total Bilirubin 2.1 H (0.2-1.3) mg/dL AST 21 (17-59) U/L ALT 21 (4-49) U/L Alkaline Phosphatase 70 (38-126) U/L Creatine Kinase 41 L (55-170) U/L Troponin I <0.012 (0.000-0.034) ng/mL Total Protein 7.8 (6.3-8.2) g/dL Albumin 5.1 H (3.5-5.0) g/dL TSH 1.490 (0.465-4.680) mIU/L Urine Color Urine Appearance (Clear) Urine pH (5.0-8.0) Ur Specific [place] (1.001-1.035) Urine Protein (Negative) Urine Glucose (UA) (Negative) Urine Ketones (Negative) Urine Blood (Negative) Urine Nitrite (Negative) Urine Bilirubin (Negative) Urine Urobilinogen (<2.0) mg/dL Ur Leukocyte Esterase (Negative) Salicylates <1.0 mg/dL Urine Opiates Screen (NotDetected) Ur Oxycodone Screen (NotDetected) Urine Methadone Screen (NotDetected) Ur Propoxyphene Screen (NotDetected) Acetaminophen <10.0 ug/mL Ur Barbiturates Screen (NotDetected) U Tricyclic Antidepress (NotDetected) Ur Phencyclidine Scrn (NotDetected) Ur Amphetamines Screen (NotDetected) U Methamphetamines Scrn (NotDetected) U Benzodiazepines Scrn (NotDetected) Urine Cocaine Screen (NotDetected) U Marijuana (THC) Screen (NotDetected) Serum Alcohol <10 mg/dL 12/14/19 12/14/19 Range/Units 16:45 17:00 WBC 6.0 (3.8-10.6) k/uL RBC 5.36 (4.30-5.90) m/uL Hgb 17.0 (13.0-17.5) gm/dL Hct 49.1 (39.0-53.0) % MCV 91.6 (80.0-100.0) fL MCH 31.8 (25.0-35.0) pg MCHC 34.7 (31.0-37.0) g/dL RDW 11.7 (11.5-15.5) % Plt Count 127 L (150-450) k/uL Neutrophils % 69 % Lymphocytes % 23 % Monocytes % 6 % Eosinophils % 1 % Basophils % 0 % Neutrophils # 4.1 (1.3-7.7) k/uL Lymphocytes # 1.4 (1.0-4.8) k/uL Monocytes # 0.4 (0-1.0) k/uL Eosinophils # 0.1 (0-0.7) k/uL Basophils # 0.0 (0-0.2) k/uL PT (9.0-12.0) sec INR (<1.2) APTT (22.0-30.0) sec Sodium (137-145) mmol/L Potassium (3.5-5.1) mmol/L Chloride (98-107) mmol/L Carbon Dioxide (22-30) mmol/L Anion Gap mmol/L BUN (9-20) mg/dL Creatinine (0.66-1.25) mg/dL Est GFR (CKD-EPI)AfAm (>60 ml/min/1.73 sqM) Est GFR (CKD-EPI)NonAf (>60 ml/min/1.73 sqM) Glucose (74-99) mg/dL Calcium (8.4-10.2) mg/dL Phosphorus (2.5-4.5) mg/dL Magnesium (1.6-2.3) mg/dL Total Bilirubin (0.2-1.3) mg/dL AST (17-59) U/L ALT (4-49) U/L Alkaline Phosphatase (38-126) U/L Creatine Kinase (55-170) U/L Troponin I (0.000-0.034) ng/mL Total Protein (6.3-8.2) g/dL Albumin (3.5-5.0) g/dL TSH (0.465-4.680) mIU/L Urine Color Light Yellow Urine Appearance Clear (Clear) Urine pH 7.5 (5.0-8.0) Ur Specific [place] 1.007 (1.001-1.035) Urine Protein Negative (Negative) Urine Glucose (UA) Negative (Negative) Urine Ketones Negative (Negative) Urine Blood Negative (Negative) Urine Nitrite Negative (Negative) Urine Bilirubin Negative (Negative) Urine Urobilinogen <2.0 (<2.0) mg/dL Ur Leukocyte Esterase Negative (Negative) Salicylates mg/dL Urine Opiates Screen Not Detected (NotDetected) Ur Oxycodone Screen Not Detected (NotDetected) Urine Methadone Screen Not Detected (NotDetected) Ur Propoxyphene Screen Not Detected (NotDetected) Acetaminophen ug/mL Ur Barbiturates Screen Not Detected (NotDetected) U Tricyclic Antidepress Not Detected (NotDetected) Ur Phencyclidine Scrn Not Detected (NotDetected) Ur Amphetamines Screen Not Detected (NotDetected) U Methamphetamines Scrn Not Detected (NotDetected) U Benzodiazepines Scrn Not Detected (NotDetected) Urine Cocaine Screen Not Detected (NotDetected) U Marijuana (THC) Screen Not Detected (NotDetected) Serum Alcohol mg/dL Disposition Clinical Impression: Dehydration, Light headedness, Dizziness Disposition: HOME SELF-CARE Condition: Good Instructions (If sedation given, give patient instructions): Dizziness (ED), Near Syncope (ED) Is patient prescribed a controlled substance at d/c from ED?: No Referrals: Leonides Luis MD [Primary Care Provider] - 1-2 days
[2019-12-14 17:19] LABS: Amphetamine Screen,Urine Not Detected (NotDetected); Barbiturate Screen,Urine Not Detected (NotDetected); Benzodiazepines Screen,Urine Not Detected (NotDetected); Cocaine Screen,Urine Not Detected (NotDetected); Methadone Screen, Urine Not Detected (NotDetected); Opiate Screen,Urine Not Detected (NotDetected); Oxycodone Screen, Urine Not Detected (NotDetected); Phencyclidine Screen,Urine Not Detected (NotDetected); Tricyclic Antidepressant,Urine Not Detected (NotDetected); Urn Cannabinoid Scrn Not Detected (NotDetected)
[2019-12-14 19:35] VITALS: BP 124/78; PULSE 80; RESP 18; TEMP 98.2
== END 2019-12-14 19:25 | disposition home or self-care (01) ==
LOC: EC 16:19
DX: E86.0 Dehydration (principal); J45.909 Unspecified asthma, uncomplicated; Z79.51 Long term (current) use of inhaled steroids; Z79.899 Other long term (current) drug therapy; Z87.891 Personal history of nicotine dependence
CPT/HCPCS: 36415; 80053; 80306; 80320; 80329; 81003; 82550; 83520; 83735; 84100; 84443; 84484; 85025; 85610; 85730; 87040; 93005; 96361; 96374; 99284

== ENCOUNTER → 2020-01-13 | Outpatient (CLI) | payer BC ==
--- NOTE | 2020-01-13 15:25 | CT ---
EXAMINATION TYPE: CT brain wo/w con DATE OF EXAM: 01/13/2020 COMPARISON: None HISTORY: 29-year-old male with dizziness and giddiness TECHNIQUE: Examination was done in axial plane before and after intravenous contrast administration, 100 mL Isovue 300 was administered. Coronal and sagittal reconstructions performed. CT DLP: 2446 mGycm Automated exposure control for dose reduction was used. FINDINGS: There is no evidence of acute intracranial hemorrhage, acute ischemic changes, mass, mass-effect, or extra-axial fluid collection. There is no effacement of cerebral sulci or basal subarachnoid cister ns. There is no hydrocephalus. There is no midline shift. Zee-white matter distinction is preserv ed. Possible 6 x 4 mm hypodense lesion of the posterior pituitary gland. No abnormal sellar enlargement. No enhancing intracranial lesions. No venous sinuses are patent. Paranasal sinuses and mastoid air cells well pneumatized. Orbits and globes are intact. IMPRESSION: 1. No acute intracranial abnormality seen. 2. Possible tiny 6 x 4 mm hypodense lesion of the posterior pituitary gland. Microadenoma and Rathke' s cleft cyst are in the differential. Consider pituitary MRI if clinically indicated.
== END | disposition home or self-care (01) ==
LOC: RADCTMAIN 12:30
PROVIDERS: ATTEND Family Medicine
DX: E23.6 Other disorders of pituitary gland (principal)
CPT/HCPCS: 70470; Q9967

== ENCOUNTER → 2020-10-12 | Outpatient (CLI) | payer OTHER | END | disposition home or self-care (01) | LOC: LABWHC1 11:23 | PROVIDERS: ATTEND Nuclear Medicine Nuclear Cardiology | DX: Z01.812 Encounter for preprocedural laboratory examination (principal) | CPT/HCPCS: U0003; U0005 ==

== ENCOUNTER → 2021-08-13 | Outpatient (CLI) | payer OTHER | END | disposition home or self-care (01) | LOC: LABWHC1 14:11 | PROVIDERS: ATTEND Family Medicine | DX: U07.1 COVID-19 (principal); J06.9 Acute upper respiratory infection, unspecified | CPT/HCPCS: 87502; 87634; U0003; C9803; U0005 ==

== ENCOUNTER 2021-08-14 16:08 | Emergency (ER) | payer OTHER, BC ==
[2021-08-14 17:22] VITALS: BP 138/93; PULSE 93; TEMP 98.3
[2021-08-14 20:04] VITALS: RESP 20
[2021-08-14] MEDS ORDERED: ACETAMINOPHEN TAB 500 MG TAB PO STA (20:11)
[2021-08-14] MEDS ORDERED: SODIUM CHLORIDE 0.9% 50 ML IVPB ONE (20:15)
[2021-08-14] MEDS ORDERED: BAMLANIVIMAB (EUA) 700 MG, ETESEVIMAB (EUA) 1,400 MG in SODIUM CHLORIDE 0.9% 50 ML IVPB ONE (20:45)
--- NOTE | 2021-08-14 22:33 | ED ---
General Adult HPI - General Chief complaint: Upper Respiratory Infection Stated complaint: Covid+,Wants antibody Time Seen by Provider: 08/14/21 19:26 Source: patient, RN notes reviewed, old records reviewed Mode of arrival: ambulatory Limitations: no limitations - History of Present Illness Initial comments: Patient is a 30-year-old male with past medical history remarkable for asthma and presents emergency Department complaining of Covid 19 infection. Patient has had symptoms for proximal by 7 days. He tested positive today. He is seeking monoclonal antibody therapy. Patient does have an elevated BMI over 25. Endorses a cough, fatigue, as well as bilateral eye irritation. Denies any known sick contacts. Endorses subjective fevers. Patient was not vaccinated. He presents emergency Department requesting monoclonal antibody therapy. - Related Data Home Medications Medication Instructions Recorded Confirmed Advair Unknown Dose 1 puff PO RT-BID 12/12/19 12/12/19 Albuterol Sulfate [Proair Hfa] 2 puff INHALATION RT-Q6H PRN 12/12/19 12/12/19 Montelukast [Singulair] 10 mg PO DAILY 12/12/19 12/12/19 Multivitamins, Thera [Multivitamin 1 tab PO DAILY 12/12/19 12/12/19 (formulary)] Allergies Allergy/AdvReac Type Severity Reaction Status Date / Time No Known Allergies Allergy Verified 12/14/19 16:27 Review of Systems ROS Statement: Those systems with pertinent positive or pertinent negative responses have been documented in the HPI. Review of Systems: CONST: Denies fever EYES: Denies blurry vision ENT: Endorses nasal congestion C/V: Denies Chest pain RESP: Endorses cough GI: Denies abdominal pain : Denies dysuria SKIN: Denies rash. MSK: Denies joint pain. NEURO: Denies headache ROS Other: All systems not noted in ROS Statement are negative. Past Medical History Past Medical History: Asthma History of Any Multi-Drug Resistant Organisms: None Reported Past Surgical History: No Surgical Hx Reported Past Psychological History: ADD/ADHD Smoking Status: Never smoker Past Alcohol Use History: Rare Past Drug Use History: Marijuana General Exam - General Exam Comments Initial Comments: General: Appears in no acute distress. HEAD: Normal with no signs of head trauma. EYES: Patient does have bilateral conjunctival injection as well as some mild swelling of the right eyelids. There is no fluctuance appreciated. No discharge. PERRLA EOMI. ENT: Hearing grossly intact, normal oropharynx. RESPIRATORY: Clear breath sounds bilaterally. No wheezes, rales, or rhonchi. Not hypoxic. No increased work of breathing. C/V: Regular rate and rhythm. S1 and S2 auscultated, no edema, peripheral pulses 2+ and intact throughout ABD: Abd is soft, nontender, nondistended EXT: Normal range of motion, no obvious deformity SKIN: No rashes or lesions observed on exposed skin. NEURO: Alert and oriented 4. Limitations: no limitations Course Vital Signs 08/14/21 08/14/21 17:20 20:03 Temperature 98.3 F Pulse Rate 93 Respiratory 19 20 Rate Blood Pressure 138/93 O2 Sat by Pulse 97 Oximetry Medical Decision Making - Medical Decision Making Based on the patient's presentation and physical exam, he is Covid positive. He does meet criteria for monoclonal antibody therapy. He is not hypoxic and do not believe that require any further imaging or laboratory studies at this time. Patient was in agreement this plan. I did field counsel him that he can use warm compresses for his right eyelid irritation which is likely secondary to viral conjunctivitis from Covid. Patient will be administered monoclonal antibodies, discharged home following a period of observation. Patient was in agreement this plan. Patient had no reaction to the monoclonal antibodies. He was discharged home in stable condition with strict return precautions. I do field counsel him to obtain a pulse ox to check his home oxygen at home. I instructed the patient to follow up with their PCP in the next 3 days. I explained that the patient should return to the emergency department if they experience any worsening symptoms. Strict return precautions were discussed with the patient. The patient expressed understanding of these instructions. I an swered all questions that the patient had. The patient was discharged home in fair condition with their prescriptions and follow up information. Disposition Clinical Impression: COVID-19 Disposition: HOME SELF-CARE Condition: Fair Instructions (If sedation given, give patient instructions): Coronavirus Disease 2019 (COVID-19) Is patient prescribed a controlled substance at d/c from ED?: No Referrals: Leonides Luis MD [Primary Care Provider] - 1-2 days
== END 2021-08-14 23:02 | disposition home or self-care (01) ==
LOC: EC 16:08
DX: U07.1 COVID-19 (principal); J45.909 Unspecified asthma, uncomplicated; Z79.51 Long term (current) use of inhaled steroids
CPT/HCPCS: 99283; 96365; J3490

== ENCOUNTER → 2021-09-20 | Outpatient (CLI) | payer OTHER, BC ==
[2021-09-20 21:04] LABS: Prolactin 8.9 ng/mL (2.100-17.700); T4, Free (Free Thyroxine) 1.3 ng/dL (0.800-1.800)
== END | disposition home or self-care (01) ==
LOC: LABWHC1 12:43
PROVIDERS: ATTEND Internal Medicine Endocrinology, Diabetes & Metabolism
DX: D35.2 Benign neoplasm of pituitary gland (principal)
CPT/HCPCS: 36415; 82024; 82533; 84146; 84403; 84439; 84443

== ENCOUNTER → 2023-12-17 | Outpatient (CLI) | payer BC, OTHER ==
--- NOTE | 2023-12-17 11:02 | XR ---
EXAMINATION TYPE: XR shoulder complete BILAT DATE OF EXAM: 12/17/2023 COMPARISON: NONE HISTORY: Pain TECHNIQUE: Three views of the right and left shoulder are submitted. FINDINGS: The osseous structures are intact. There is no acute fracture or dislocation. Mild hypertrophic AC j oint arthropathy on the right. Left AC joint appears to be preserved.. IMPRESSION: 1. Mild right AC joint hypertrophic arthropathy. 2. No acute process of the left shoulder. If concern for rotator cuff injury consider follow-up MRI.
== END | disposition home or self-care (01) ==
LOC: RADXRMAIN 10:25
PROVIDERS: ATTEND Family Medicine
DX: M19.011 Primary osteoarthritis, right shoulder (principal); M25.512 Pain in left shoulder